=== PATIENT | female | born 1990 | race Caucasian/White ===

== ENCOUNTER 2021-11-22 22:57 | Emergency (ER) | payer MEDICAID ==
[~2021-11-22] VITALS: Ht 160 cm; Wt 66.0 kg
[2021-11-22 23:18] VITALS: BP 118/75
[2021-11-23] MEDS ORDERED: CEPH500T MT (02:21)
== END 2021-11-23 02:40 | disposition home or self-care (01) ==
LOC: ER 22:57
DX: H61.0 Chondritis and perichondritis of external ear (principal)
CPT/HCPCS: 99281

== ENCOUNTER 2022-03-03 23:12 | Inpatient (IN) | payer MEDICAID ==
[~2022-03-03] VITALS: Ht 162 cm; Wt 74.4 kg
[~2022-03-03 23:12] MED LIST: CEPH500T MT
[2022-03-03] MEDS ORDERED: LACTATED RINGERS 1,000 ML IV NR (23:45)
[2022-03-03] MEDS ORDERED: LACTATED RINGERS 1,000 ML IV SCH (23:45)
[2022-03-04] MEDS ORDERED: BUTORPHANOL TARTRATE 2 MG/ML VIAL IV PRN (00:15)
[2022-03-04] MEDS ORDERED: LIDOCAINE HCL 1% 20ML VIAL (Pyxis) INJ INFIL SCH (00:15)
[2022-03-04] MEDS ORDERED: CARBOPROST TROMETHAMINE 250 MCG/ML AMPUL IM PRN (00:15)
[2022-03-04] MEDS ORDERED: METHYLERGONOVINE MALEATE 0.2 MG/ML IM PRN ×2 (00:15→19:30)
[2022-03-04] MEDS ORDERED: NALOXONE HCL 0.4 MG/ML 1ML VIAL IM PRN (00:15)
[2022-03-04] MEDS ORDERED: MISOPROSTOL 100MCG TABLET VG SCH (00:15)
[2022-03-04 03:29] LABS: BASOPHILS % 0.5 % (0.0-2.0); EOSINOPHILS % 0.2 % (0.0-5.0); HEMATOCRIT. 37.6 % (36.0-48.0); HEMOGLOBIN. 12.5 g/dL (12.0-16.0); LYMPHOCYTES % 14.3 % (20.0-50.0); MEAN CORPUSCULAR HEMOGLOBIN 27.6 pg (28.0-32.0); MEAN CORPUSCULAR VOLUME 83.2 fL (81.0-99.0); MEAN PLATELET VOLUME 10.5 fl (7.4-10.4); MONOCYTES % 5.4 % (2.0-8.0); NEUTROPHILS % 79.6 % (40.0-76.0); PLATELET 225 x1000/uL (130-400); RED BLOOD CELL COUNT 4.52 mill/uL (4.2-5.4); RED CELL DISTRIBUTION WIDTH 15.5 % (11.6-14.6)
[2022-03-04 03:43] LABS: INR 0.9; PARTIAL THROMBOPLASTIN TIME 27.9 sec (23.4-31.0); PROTHROMBIN TIME 9.9 sec (9.6-11.0)
[2022-03-04] MEDS ORDERED: ROPIVACAINE HCL/PF EPIDURAL 200 ML EPI SCH (04:00)
[2022-03-04] MEDS ORDERED: ONDANSETRON HCL 4MG/2ML INJ IV PRN (04:45)
[2022-03-04 05:09] LABS: CLARITY URINE CLEAR (CLEAR); COLOR URINE YELLOW (YELLOW); KETONES URINE 1+ (NEGATIVE); LEUKOCYTE ESTERASE URINE NEGATIVE (NEGATIVE); NITRITE URINE NEGATIVE (NEGATIVE); OCCULT BLOOD URINE 1+ (NEGATIVE); PH URINE 7.5 (4.5-8.0); PROTEIN URINE 1+ (NEGATIVE); SPECIFIC GRAVITY URINE 1.014 (1.005-1.030); UROBILINOGEN URINE 0.2 E.U./dL (0.2-1.0)
[2022-03-04] MEDS: OXYTOCIN 30 UNITS/500ML NS PMX 500 ML IV SCH ×2 (10:20→22:46)
[2022-03-04 10:23] LABS: *AMPHETAMINES SCREEN URINE NEGATIVE (NEGATIVE); *BARBITURATES SCREEN URINE NEGATIVE (NEGATIVE); *BENZODIAZEPINES SCREEN URINE NEGATIVE (NEGATIVE); *COCAINE SCREEN URINE NEGATIVE (NEGATIVE); CANNABINOID URINE SCREEN NEGATIVE (NEGATIVE); METHADONE URINE SCREEN NEGATIVE (NEGATIVE); OPIATES URINE SCREEN NEGATIVE (NEGATIVE); PHENCYCLIDINE URINE SCREEN NEGATIVE (NEGATIVE)
[2022-03-04] MEDS ORDERED: ROPIVACAINE HCL/PF EPIDURAL 200 ML EPI ONE (15:07)
[2022-03-04] MEDS ORDERED: ACETAMINOPHEN 500MG TABLET PO SCH (16:15)
[2022-03-04] MEDS: LACTATED RINGERS 1,000 ML IV SCH (16:24)
[2022-03-04] MEDS ORDERED: OXYTOCIN 30 UNITS/500ML NS PMX 500 ML IV SCH (19:30)
[2022-03-04] MEDS ORDERED: BENZOCAINE/LANOLIN/ALOE VERA SPRAY TOP PRN (19:30)
[2022-03-04] MEDS ORDERED: HEMORRHOIDAL SUPP PR PRN (19:30)
[2022-03-04] MEDS ORDERED: BISACODYL 10MG SUPP PR PRN (19:30)
[2022-03-04] MEDS ORDERED: GLYCERIN/WITCH HAZEL LEAF MEDICATED PAD TOP PRN (19:30)
[2022-03-04] MEDS ORDERED: DIPHENHYDRAMINE 25MG CAPSULE PO PRN (19:30)
[2022-03-04] MEDS: IBUPROFEN 400MG TABLET PO PRN ×2 (20:40→22:06)
[2022-03-04 22:15] VITALS: BP 126/65
[2022-03-04] MEDS: LANOLIN OINT 7GM TUBE TOP PRN (22:45)
[2022-03-04] MEDS: DOCUSATE SODIUM 100MG CAPSULE PO SCH (22:46)
[2022-03-05] VITALS: BP 122/67
[2022-03-05] MEDS: OXYCODONE HCL/ACETAMINOPHEN 5/325MG TABLET PO PRN ×3 (03:38→21:03)
[2022-03-05 04:00] VITALS: BP 127/80
[2022-03-05] MEDS: LACTATED RINGERS 1,000 ML IV SCH (04:38)
[2022-03-05] MEDS: IBUPROFEN 800MG TABLET PO PRN ×3 (05:18→17:30)
[2022-03-05 08:00] VITALS: BP 127/84
[2022-03-05 08:04] LABS: BASOPHILS % 0.4 % (0.0-2.0); EOSINOPHILS % 0.2 % (0.0-5.0); HEMATOCRIT. 31.9 % (36.0-48.0); HEMOGLOBIN. 10.6 g/dL (12.0-16.0); LYMPHOCYTES % 12.8 % (20.0-50.0); MEAN CORPUSCULAR VOLUME 84.7 fL (81.0-99.0); MEAN PLATELET VOLUME 10.7 fl (7.4-10.4); MONOCYTES % 6.7 % (2.0-8.0); NEUTROPHILS % 79.9 % (40.0-76.0); PLATELET 177 x1000/uL (130-400); RED BLOOD CELL COUNT 3.77 mill/uL (4.2-5.4); RED CELL DISTRIBUTION WIDTH 15.8 % (11.6-14.6)
[2022-03-05] MEDS: PRENATAL VIT/FE FUMARATE/FA TABLET PO SCH (08:38)
[2022-03-05] MEDS: FERROUS SULFATE 325MG TABLET PO SCH ×2 (08:38→12:31)
[2022-03-05 14:45] VITALS: BP 115/60
[2022-03-05] MEDS: DOCUSATE SODIUM 100MG CAPSULE PO SCH (21:05)
[2022-03-05 21:19] VITALS: BP 106/67
[2022-03-06 02:18] LABS: HEPATITIS B SURFACE ANTIGEN NEGATIVE
[2022-03-06] MEDS: IBUPROFEN 800MG TABLET PO PRN ×2 (02:18→08:54)
[2022-03-06 04:49] VITALS: BP 101/65
[2022-03-06 08:00] VITALS: BP 101/65
[2022-03-06] MEDS: PRENATAL VIT/FE FUMARATE/FA TABLET PO SCH (08:53)
[2022-03-06 08:54] VITALS: BP 101/65
[2022-03-06] MEDS: LANOLIN OINT 7GM TUBE TOP PRN (08:54)
[2022-03-06] MEDS: FERROUS SULFATE 325MG TABLET PO SCH (08:54)
== END 2022-03-06 11:30 | disposition home or self-care (01) | DRG 560 ==
LOC: 8 EST LDRP 23:12 → OBSVTOIN 23:12 → 8EST 03-04 22:19
PROVIDERS: ADMIT Obstetrics & Gynecology; ATTEND Obstetrics & Gynecology
PROC: 10E0XZZ Delivery of Products of Conception, External Approach (ICD-10-PCS; principal; 2022-03-04)
PROC: 0W8NXZZ Division of Female Perineum, External Approach (ICD-10-PCS; 2022-03-04)
DX: O77.0 Labor and delivery complicated by meconium in amniotic fluid (principal); Z37.0 Single live birth; O99.02 Anemia complicating childbirth; Z20.822 Contact with and (suspected) exposure to COVID-19; Z3A.38 38 weeks gestation of pregnancy
CPT/HCPCS: 36415; 76805; 76818; 80305; 81003; 85025; 86592; 86703; 86762; 86850; 86900; 87340; 87426; 99281; G0378; J0595; J2405; J2795; J7120; A4315; J2590

== ENCOUNTER 2022-03-16 22:25 | Day surgery (SDC) | payer MEDICAID ==
[~2022-03-16] VITALS: Ht 162.6 cm; Wt 69.0 kg
[2022-03-17 03:21] LABS: CLARITY URINE TURBID (CLEAR); COLOR URINE DARK YELLOW (YELLOW); KETONES URINE 1+ (NEGATIVE); LEUKOCYTE ESTERASE URINE 3+ (NEGATIVE); NITRITE URINE NEGATIVE (NEGATIVE); OCCULT BLOOD URINE 3+ (NEGATIVE); PH URINE 5.5 (4.5-8.0); PROTEIN URINE 2+ (NEGATIVE); SPECIFIC GRAVITY URINE 1.021 (1.005-1.030)
[2022-03-17] MEDS ORDERED: SODIUM CHLORIDE 0.9% 1,000 ML IV NR (04:00)
[2022-03-17] MEDS ORDERED: CEFTRIAXONE 1 G PREMIX 50 ML IV NR (04:00)
[2022-03-17] MEDS ORDERED: ACETAMINOPHEN 325MG TABLET PO ONE (04:15)
[2022-03-17 04:26] LABS: HEMATOCRIT. 37.3 % (36.0-48.0); HEMOGLOBIN. 12.4 g/dL (12.0-16.0); MEAN CORPUSCULAR HEMOGLOBIN 27.6 pg (28.0-32.0); MEAN CORPUSCULAR VOLUME 83.2 fL (81.0-99.0); MEAN PLATELET VOLUME 7.4 fl (7.4-10.4); PLATELET 317 x1000/uL (130-400); RED BLOOD CELL COUNT 4.49 mill/uL (4.2-5.4); RED CELL DISTRIBUTION WIDTH 16.8 % (11.6-14.6)
[2022-03-17 04:39] LABS: CHLORIDE 107 mEq/L (98-107)
[2022-03-17 07:16] LABS: PLATELET ESTIMATE NORMAL
[2022-03-17] MEDS ORDERED: MIDAZOLAM HCL 2 MG/2 ML VIAL ONE (14:20)
[2022-03-17] MEDS ORDERED: FENTANYL CITRATE/PF 50MCG/ML 2ML VIAL ONE (14:20)
[2022-03-17] MEDS ORDERED: PROPOFOL 200MG/20ML VIAL IV ONE (14:20)
[2022-03-17] MEDS ORDERED: DEXAMETHASONE 4MG/ML 1ML VIAL ONE (14:36)
[2022-03-17] MEDS ORDERED: ONDANSETRON HCL 4MG/2ML INJ ONE (14:36)
[2022-03-17] MEDS ORDERED: KETOROLAC 30MG/ML VIAL ONE (14:36)
[2022-03-17] MEDS ORDERED: METOCLOPRAMIDE HCL 10MG/2ML VIAL ONE (14:36)
[2022-03-17] MEDS ORDERED: OXYTOCIN 10 UNITS/ML 1ML ONE (14:44)
[2022-03-17] MEDS ORDERED: IBUPROFEN 600MG TABLET PO PRN (15:30)
[2022-03-17] MEDS ORDERED: METHYLERGONOVINE MALEATE 0.2MG TABLET PO NR (17:00)
[2022-03-17] MEDS ORDERED: IBUPROFEN 800MG TABLET PO PRN (17:30)
[2022-03-17 17:51] VITALS: BP 111/68
== END 2022-03-17 18:32 | disposition home or self-care (01) ==
LOC: ER 22:25 → UNDOADMIN 03-17 05:09 → MICUSO 03-17 05:09 → OR 03-17 14:16
PROVIDERS: ATTEND Obstetrics & Gynecology
DX: N93.8 Other specified abnormal uterine and vaginal bleeding (principal); Z79.899 Other long term (current) drug therapy; Z98.890 Other specified postprocedural states; Z88.1 Allergy status to other antibiotic agents; Z20.822 Contact with and (suspected) exposure to COVID-19
CPT/HCPCS: 36415; 59160; 74176; 76830; 76856; 80053; 81003; 83605; 84702; 85025; 87040; 87077; 87086; 87186; 87426; 88305; 99285; J0696; J1100; J1885; J2250; J2405; J2704; J2765; J3010